=== PATIENT | female | born 1960 | race Caucasian/White ===

== ENCOUNTER 2023-09-18 11:40 | Day surgery (SDC) | payer OTHER ==
[2023-09-17 10:28] VITALS: BMI 16.2
[2023-09-18 12:55] LABS: Hematocrit 28.6 % (36.0-47.0)
[2023-09-18] MEDS ORDERED: Bacitracin Zinc Ointment 30 gm TUBE ONE (13:46)
[2023-09-18] MEDS ORDERED: EPINEPHrine 1 MG/ML VIAL ONE (13:46)
[2023-09-18] MEDS ORDERED: Lidocaine 1% (PF) 30 ML VIAL ONE (13:46)
[2023-09-18] MEDS ORDERED: PROPOFOL 20 ML ONE (14:31)
[2023-09-18] MEDS ORDERED: fentaNYL PF 100 MCG/2 ML SYRINGE ONE (14:31)
[2023-09-18] MEDS ORDERED: Lidocaine 1% PF 5 ML VIAL ONE (14:32)
[2023-09-18] MEDS ORDERED: Sterile Water 10 ML ONE (14:39)
[2023-09-18] MEDS ORDERED: ePHEDrine Sulfate 50 MG/10 ML VIAL ONE (14:56)
[2023-09-18] MEDS ORDERED: CEFAZOLIN 1 GM VIAL ONE (14:56)
[2023-09-18] MEDS ORDERED: Dexamethasone 20 MG/5 ML VIAL ONE (15:01)
[2023-09-18] MEDS ORDERED: Ondansetron PF 4 MG/2 ML Vial ONE (15:04)
[2023-09-18] MEDS ORDERED: Promethazine HCl 25 MG/ML VIAL IM PRN (15:28)
[2023-09-18] MEDS ORDERED: Ondansetron HCl/PF 4 MG/2 ML Vial IVP PRN (15:28)
[2023-09-18] MEDS ORDERED: fentaNYL 50 mcg/mL 1 mL Vial ONE ×2 (16:06→16:52)
== END 2023-09-18 17:38 | disposition home or self-care (01) ==
LOC: SDC 11:40
PROVIDERS: ATTEND Otolaryngology Plastic Surgery within the Head & Neck
PROC: 0CT80ZZ Resection of Right Parotid Gland, Open Approach (ICD-10-PCS; principal; 2023-09-18)
DX: C07 Malignant neoplasm of parotid gland (principal); J30.0 Vasomotor rhinitis; K21.9 Gastro-esophageal reflux disease without esophagitis; F41.9 Anxiety disorder, unspecified; Z87.59 Personal history of other complications of pregnancy, childbirth and the puerperium; Z90.710 Acquired absence of both cervix and uterus; Z98.890 Other specified postprocedural states; Z98.82 Breast implant status; Z88.2 Allergy status to sulfonamides
CPT/HCPCS: 85014; 88307; 88341; 88342; 93005; 93010; J0171; J0690; J1100; J2001; J2405; J2704; J3010